=== PATIENT | female | born 1995 | race African-American/Black ===

== ENCOUNTER → 2024-05-16 13:02 | Outpatient (CLI) | payer OTHER, SELFPAY ==
[2024-05-16 14:55] LABS: Cholesterol 172 mg/dL (140-199); HDL Cholesterol 76 mg/dL (40-60); LDL Cholesterol Calculated 86 mg/dL (<100); Triglycerides 50 mg/dL (35-150)
== END ==
PROVIDERS: PCP Family Medicine; Referring Provider Family Medicine; Visit Provider Family Medicine
DX: Z13.220 Encounter for screening for lipoid disorders (principal)
CPT/HCPCS: 80061